=== PATIENT | male | born 1995 | race Caucasian/White ===

== ENCOUNTER 2019-04-16 20:18 | Inpatient (IN) | payer MEDICAID, OTHER ==
[~2019-04-16] VITALS: Ht 175.3 cm; Wt 77.8 kg
[2019-04-16] MEDS ORDERED: DIPHENHYDRAMINE 50 MG INJ IV STA (22:05)
[2019-04-16] MEDS ORDERED: SOD CHLORIDE 0.9% 1,000 ML IV STA (22:05)
[2019-04-16] MEDS ORDERED: ONDANSETRON 4 MG INJ IV STA (22:05)
--- NOTE | 2019-04-16 22:20 | ERD ---
ER Documentation Chief Complaint Chief Complaint L sided ARNOLD, vomiting x3d. vomiting w water. HPI 24-year-old male with no significant past medical history presenting to the emergency department complaining of headache which onset suddenly 3 days ago. The patient states he was at work when he noticed a severe, constant left occipital region headache. He reports 7/10 pain. Associated symptoms include vomiting. He reports 3 episodes of nonbilious and nonbloody vomiting today. He does endorse some neck pain and photophobia. He denies phonophobia. He took ibuprofen and Tylenol at home with no significant relief. He denies any fevers, chills, abdominal pain, or other symptoms at this time. ROS All systems reviewed and are negative except as per history of present illness. Medications Home Meds No Active Prescriptions or Reported Meds Allergies Allergies: Coded Allergies: No Known Allergy (Verified , 03/10/15) PMhx/Soc Medical and Surgical Hx: pt denies Medical Hx, pt denies Surgical Hx History of Surgery: No Anesthesia Reaction: No Hx Neurological Disorder: No Hx Respiratory Disorders: No Hx Cardiac Disorders: No Hx Psychiatric Problems: No Hx Miscellaneous Medical Probl: No Hx Alcohol Use: No Hx Substance Use: No Hx Tobacco Use: No Smoking Status: Never smoker FmHx Family History: No diabetes Physical Exam Vitals Vital Signs Date Temp Pulse Resp B/P (MAP) Pulse Ox O2 O2 Flow FiO2 Time Delivery Rate 04/16/19 99.7 106 22 142/84 99 20:28 (103) Physical Exam Const: No acute distress Head: Atraumatic Eyes: Normal Conjunctiva ENT: Normal External Ears, Nose and Mouth. Neck: Full range of motion. No meningismus. Resp: Clear to auscultation bilaterally Cardio: Regular rate and rhythm, no murmurs Abd: Soft, non tender, non distended. Normal bowel sounds. No rebound tenderness or guarding. No McBurney's point tenderness. Skin: No petechiae or rashes Back: No midline or flank tenderness Ext: No cyanosis, or edema Neur: Awake and alert M/S: Alert and oriented Face: EOMI, face and pharynx with normal sensation and function Motor: Normal strength throughout Sensation: Normal sensation throughout Speech: Normal Cerebel: Normal coordination Normal gait Normal finger to nose Psych: Normal Mood and Affect Result Diagram: 5/223904/16/192239 Results 24 hrs Laboratory Tests Test 04/16/19 22:40 04/17/19 00:05 White Blood Count 21.4 10^3/ul Red Blood Count 5.52 10^6/ul Hemoglobin 16.3 g/dl Hematocrit 47.8 % Mean Corpuscular Volume 86.6 fl Mean Corpuscular Hemoglobin 29.5 pg Mean Corpuscular Hemoglobin Concent 34.1 g/dl Red Cell Distribution Width 12.4 % Platelet Count 366 10^3/UL Mean Platelet Volume 10.4 fl Immature Granulocytes % 0.500 % Neutrophils % 88.6 % Lymphocytes % 4.9 % Monocytes % 5.8 % Eosinophils % 0.0 % Basophils % 0.2 % Nucleated Red Blood Cells % 0.0 /100WBC Immature Granulocytes # 0.100 10^3/ul Neutrophils # 19.0 10^3/ul Lymphocytes # 1.1 10^3/ul Monocytes # 1.3 10^3/ul Eosinophils # 0.0 10^3/ul Basophils # 0.0 10^3/ul Nucleated Red Blood Cells # 0.0 10^3/ul Prothrombin Time 13.1 Sec Prothrombin Time Ratio 1.0 INR International Normalized Ratio 0.98 Activated Partial Thromboplast Time 27.0 Sec Sodium Level 141 mmol/L Potassium Level 3.5 mmol/L Chloride Level 102 mmol/L Carbon Dioxide Level 22 mmol/L Anion Gap 17 Blood Urea Nitrogen 15 mg/dl Creatinine 0.84 mg/dl Est Glomerular Filtrat Rate mL/min > 60 mL/min Glucose Level 102 mg/dl Calcium Level 9.9 mg/dl Total Bilirubin 0.8 mg/dl Direct Bilirubin 0.00 mg/dl Indirect Bilirubin 0.8 mg/dl Aspartate Amino Transf (AST/SGOT) 22 IU/L Alanine Aminotransferase (ALT/SGPT) 28 IU/L Alkaline Phosphatase 97 IU/L Total Protein 7.8 g/dl Albumin 5.0 g/dl Globulin 2.80 g/dl Albumin/Globulin Ratio 1.78 Lipase 40 U/L POC Venous Lactate 0.9 mmol/L Current Medications Medications Dose Sig/Bacilio Start Time Status Last (Trade) Ordered Route PRN Stop Time Admin Dose Reason Admin Sodium 1,000 ml @ Q1H STAT 04/16/19 DC 04/16/19 Chloride 1,000 mls/hr IV 22:05 22:18 04/16/19 23:32 Ondansetron 4 mg ONCE STAT 04/16/19 DC 04/16/19 HCl (Zofran IV 22:05 22:17 Inj) 04/16/19 22:07 25 mg ONCE STAT 04/16/19 DC 04/16/19 Diphenhydrami IV 22:05 22:18 ne HCl 04/16/19 22:07 (Benadryl) Ketorolac 30 mg ONCE STAT 04/16/19 DC Tromethamine IM 23:05 (Toradol) 04/16/19 23:06 Ketorolac 30 mg ONCE STAT 04/16/19 DC 04/16/19 Tromethamine IV 23:14 23:18 (Toradol) 04/16/19 23:15 Sodium 2,180 ml BOLUS OVER 2 04/16/19 DC 04/17/19 Chloride HOURS STAT 23:29 00:06 (NS) IV* 04/16/19 23:33 Ceftriaxone 50 ml @ ONCE ONCE 04/16/19 DC 04/17/19 Sodium 100 mls/hr IVPB 23:30 00:06 04/16/19 23:59 10 mg ONCE ONCE 04/17/19 Dexamethasone IV 00:30 (Decadron) 04/17/19 00:31 Vancomycin 250 ml @ ONCE ONCE 04/17/19 HCl 125 mls/hr IVPB 00:30 04/17/19 02:29 Procedures/MDM Patient is a 24-year-old male presenting to the emergency department with complaints of headache. Differential diagnoses include meningitis, intracranial hemorrhage, subarachnoid hemorrhage, CVA, TIA, tension headache, migraine, cluster headache, and others. I doubt any life threatening etiology at this time. Abdominal examination is completely benign. No rebound tenderness or guarding. No McBurney's point tenderness. I doubt acute surgical abdomen. CT scan of the head was unremarkable. Patient improved in the department after treatment with IV Toradol, Benadryl, fluids, and Zofran. Pt is to follow-up with primary care physician and return here immediately for any new or worsening symptoms. Patient's blood pressure was elevated (>120/80) but appears stable without evidence of hypertension emergency or urgency. The patient is to follow-up and pursue outpatient monitoring and therapy with their primary care physician within 1 week and return immediately if they have any new, worsening, or concerning symptoms. Disclaimer: Inadvertent spelling and grammatical errors are likely due to EHR/dictation software use and do not reflect on the overall quality of patient care. Also, please note that the electronic time recorded on this note does not necessarily reflect the actual time of the patient encounter. Departure Diagnosis: Primary Impression: Headache Condition: Fair Patient Instructions: Self-Care for Headaches Additional Instructions: Follow up with your PCP within the next 1-3 days for a repeat evaluation. If you require a referral to a specialist, your Primary Care Provider may be able to provide this for you. In most patient cases, a referral is not required. If you have further questions regarding this matter, please ask your Primary Care Provider. Return the the emergency department immediately if symptoms worsen or change. If you have any questions regarding medications, ask your pharmacist or us before you leave. If any adverse reactions, occur while taking your medications, discontinue the treatment and return to the emergency department immediately. If any new or worsening symptoms, uncontrolled fevers, or other unexplained symptoms occur, return to the emergency department immediately. Take your medications as directed, and complete the entire course of treatment. ANTHONY MELO PA-C April 16, 2019 22:20
[2019-04-16] MEDS ORDERED: KETOROLAC 30 MG INJ IM STA (23:05)
[2019-04-16] MEDS ORDERED: KETOROLAC 30 MG INJ IV STA (23:14)
[2019-04-16] MEDS ORDERED: SODIUM CHLORIDE 0.9% 1L BAG IV* STA (23:29)
[2019-04-16] MEDS ORDERED: CEFTRIAXONE 2 GM/50 ML (PMX) 50 ML IVPB ONE (23:30)
[2019-04-17] VITALS (10 sets, daily range): BP systolic 116–133; BP diastolic 56–80; PULSE 58–118; RESP 17–20; Ht 175.3 cm; Wt 77.8 kg
[2019-04-17] MEDS ORDERED: DEXAMETHASONE 10 MG/ML 1 ML INJ IV ONE (00:30)
[2019-04-17] MEDS ORDERED: VANCOMYCIN 1 GM (PMX) 250 ML IVPB ONE (00:30)
[2019-04-17] MEDS ORDERED: DOCUSATE SODIUM 100 MG CAP PO PRN (01:30)
[2019-04-17] MEDS ORDERED: ACETAMINOPHEN 325 MG TAB PO PRN (01:30)
[2019-04-17] MEDS ORDERED: VANCOMYCIN IV PER PHARMACY XX SCH (01:30)
[2019-04-17] MEDS ORDERED: NACL 0.9% 3 ML SYG IV SCH (01:30)
[2019-04-17] MEDS ORDERED: BISACODYL (EC) 5 MG TAB PO PRN (01:30)
[2019-04-17] MEDS ORDERED: LORAZEPAM 2 MG INJ IV PRN (01:30)
[2019-04-17] MEDS ORDERED: ACET-141 PO (02:58)
[2019-04-17] MEDS ORDERED: IBUP200C11 PO (02:58)
--- NOTE | 2019-04-17 05:14 | ERD ---
ER Documentation Chief Complaint Chief Complaint L sided ARNOLD, vomiting x3d HPI The patient is a 24-year-old male, presenting to the ER because of acute left- sided headache, acute vomiting, acute fever for the last 3 days. He denies p hotophobia/phonophobia, cough, complains of neck discomfort, denies chest pain, dyspnea, abdominal pain, vomiting, dizzy, diarrhea, skin rash. He smokes, denies drinking, smoke marijuana, denies any history of IV drug abuse, denies traveling Medical history/surgical history: None ROS All systems reviewed and are negative except as per history of present illness. Medications Home Meds Reported Medications Ibuprofen* (Advil*) 200 Mg Capsule, 200 MG PO Q6H PRN for PAIN, CAP 04/17/19 Acetaminophen* (Acetaminophen*) 500 MG Extra Strength Tablet, 500 MG PO Q4H PRN for PAIN AND OR ELEVATED TEMP, TAB 04/17/19 Allergies Allergies: Coded Allergies: No Known Allergy (Verified , 04/17/19) PMhx/Soc Medical and Surgical Hx: pt denies Medical Hx, pt denies Surgical Hx History of Surgery: No Anesthesia Reaction: No Hx Neurological Disorder: No Hx Respiratory Disorders: No Hx Cardiac Disorders: No Hx Psychiatric Problems: No Hx Miscellaneous Medical Probl: No Hx Alcohol Use: Yes Hx Substance Use: Yes (MARIJUANA) Hx Tobacco Use: No Smoking Status: Never smoker Physical Exam Vitals Vital Signs Date Temp Pulse Resp B/P (MAP) Pulse Ox O2 O2 Flow FiO2 Time Delivery Rate 04/16/19 99.7 106 22 142/84 99 20:28 (103) Physical Exam Const: No acute distress. Head: Atraumatic. Eyes: Normal Conjunctiva. ENT: Normal External Ears, Nose and Mouth. Neck: Full range of motion. Mild neck stiffness Resp: Clear to auscultation bilaterally. Cardio: Regular tachycardic. Abd: Soft, non distended, normal bowel sounds, non tender. Skin: No petechiae or rashes. Back: No midline or flank tenderness. Ext: No cyanosis, or edema. Neur: Awake and alert. No focal deficit Psych: Normal Mood and Affect. Result Diagram: 04/16/19223904/16/192239 Results 24 hrs Laboratory Tests Test 04/16/19 22:40 04/16/19 23:59 04/17/19 00:05 04/17/19 00:49 White Blood Count 21.4 10^3/ul Red Blood Count 5.52 10^6/ul Hemoglobin 16.3 g/dl Hematocrit 47.8 % Mean Corpuscular 86.6 fl Volume Mean Corpuscular 29.5 pg Hemoglobin Mean Corpuscular 34.1 g/dl Hemoglobin Concent Red Cell 12.4 % Distribution Width Platelet Count 366 10^3/UL Mean Platelet 10.4 fl Volume Immature 0.500 % Granulocytes % Neutrophils % 88.6 % Lymphocytes % 4.9 % Monocytes % 5.8 % Eosinophils % 0.0 % Basophils % 0.2 % Nucleated Red 0.0 /100WBC Blood Cells % Immature 0.100 10^3/ul Granulocytes # Neutrophils # 19.0 10^3/ul Lymphocytes # 1.1 10^3/ul Monocytes # 1.3 10^3/ul Eosinophils # 0.0 10^3/ul Basophils # 0.0 10^3/ul Nucleated Red 0.0 10^3/ul Blood Cells # Prothrombin Time 13.1 Sec Prothrombin Time 1.0 Ratio INR International 0.98 Normalized Ratio Activated 27.[address] Time Sodium Level 141 mmol/L Potassium Level 3.5 mmol/L Chloride Level 102 mmol/L Carbon Dioxide 22 mmol/L Level Anion Gap 17 Blood Urea 15 mg/dl Nitrogen Creatinine 0.84 mg/dl Est Glomerular > 60 mL/min Filtrat Rate mL/min Glucose Level 102 mg/dl Calcium Level 9.9 mg/dl Total Bilirubin 0.8 mg/dl Direct Bilirubin 0.00 mg/dl Indirect Bilirubin 0.8 mg/dl Aspartate Amino 22 IU/L Transf (AST/SGOT) Alanine 28 IU/L Aminotransferase ( ALT/SGPT) Alkaline 97 IU/L Phosphatase Total Protein 7.8 g/dl Albumin 5.0 g/dl Globulin 2.80 g/dl Albumin/Globulin 1.78 Ratio Lipase 40 U/L Troponin I < 0.012 ng/ml POC Venous Lactate 0.9 mmol/L CSF Tubes 4 Submitted CSF Volume 6.0 ml CSF Appearance CLEAR CSF Color COLORLESS CSF WBC 100 /cmm CSF RBC 0 /uL CSF Cell Count TUBE#4 Tube # CSF Mononuclear 76.0 % Cells % (Auto) CSF Polynuclear 24.0 % WBCs (%) CSF Glucose 58 mg/dl CSF Total Protein 38 mg/dl Current Medications Medications Dose Sig/Bacilio Start Time Status Last (Trade) Ordered Route PRN Stop Time Admin Dose Reason Admin Sodium 1,000 ml @ Q1H STAT 04/16/19 DC 04/16/19 Chloride 1,000 mls/hr IV 22:05 22:18 04/16/19 23:32 Ondansetron 4 mg ONCE STAT 04/16/19 DC 04/16/19 HCl (Zofran IV 22:05 22:17 Inj) 04/16/19 22:07 25 mg ONCE STAT 04/16/19 DC 04/16/19 Diphenhydrami IV 22:05 22:18 ne HCl 04/16/19 22:07 (Benadryl) Ketorolac 30 mg ONCE STAT 04/16/19 DC Tromethamine IM 23:05 (Toradol) 04/16/19 23:06 Ketorolac 30 mg ONCE STAT 04/16/19 DC 04/16/19 Tromethamine IV 23:14 23:18 (Toradol) 04/16/19 23:15 Sodium 2,180 ml BOLUS OVER 2 04/16/19 DC 04/17/19 Chloride HOURS STAT 23:29 00:06 (NS) IV* 04/16/19 23:33 Ceftriaxone 50 ml @ ONCE ONCE 04/16/19 DC 04/17/19 Sodium 100 mls/hr IVPB 23:30 00:06 04/16/19 23:59 10 mg ONCE ONCE 04/17/19 DC 04/17/19 Dexamethasone IV 00:30 00:21 (Decadron) 04/17/19 00:31 Vancomycin 250 ml @ ONCE ONCE 04/17/19 DC 04/17/19 HCl 125 mls/hr IVPB 00:30 00:21 04/17/19 02:29 Procedures/[place] [address] Radiology Main Line: [phone] DIAGNOSTIC IMAGING REPORT Patient: GIANNI BONILLA : 1995 Age: 24 Sex: M MR #: [id number] DOS: 04/16/19 2329 Ordering MD: RUPERT PATRICK MD Location: E/R Room/Bed: PROCEDURE: XR Chest. CLINICAL INDICATION: Chest pain. Possible sepsis TECHNIQUE: Portable AP view of the chest was obtained. COMPARISON: None. FINDINGS: The cardiomediastinal silhouette is within normal limits. The lungs are clear. There is no evidence for pleural effusion, pneumothorax or pulmonary vascular congestion. The osseous structures are intact with no evidence for acute abnormality. RPTAT:HJJR IMPRESSION: No evidence for acute intrathoracic pathology. Physician [place] Date Time Electronically viewed and signed by Damir Chatman Physician on 04/17/2019 00:22 JR/ CC: RUPERT PATRICK MD [id number] [place] [address] Radiology Main Line: [phone] DIAGNOSTIC IMAGING REPORT Patient: GIANNI BONILLA : 1995 Age: 24 Sex: M MR #: [id number] DOS: 04/16/19 2205 Ordering MD: ANTHONY MELO PA-C Location: [facility]TE Room/Bed: PROCEDURE: CT Brain without contrast. CLINICAL INDICATION: Headache. Vomiting. TECHNIQUE: A CT of the brain was performed on a multidetector CT scanner utilizing axial imaging from the skull base through the vertex without IV contrast. Multiplanar reformatted images were made. Images were reviewed on a PACS workstation. The CTDIvol is 39 mGy and the DLP is 634 mGycm. DICOM images are available. One or more of the following dose reduction techniques were utilized: 1.) Automated exposure control 2.) Adjustment of the mA +/- kV according to patient's size 3.) Use of iterative reconstruction technique. COMPARISON: None FINDINGS: There is no intracranial hemorrhage, mass effect, or midline shift. No extra- axial fluid collection is seen. The ventricles and sulci are normal in size and configuration. The density of the brain is normal, and the ortez white matter differentiation appears well-preserved. The visualized paranasal sinuses and osseous structures are grossly unremarkable. IMPRESSION: 1. No evidence of acute intracranial pathology. 2. The brain is normal in appearance. .Mario Quezada MD, MD Date Time Electronically viewed and signed by .Mario Quezada MD, MD on 04/16/2019 22:53 .A/ CC: ANTHONY MELO PA-C [id number] EKG: Read by emergency physician Rate/Rhythm: Normal Sinus Rhythm 88 beats/min QRS, ST, T-waves: No ST elevation, no T inversion, SA Impression: Abnormal EKG MEDICAL MAKING DECISION: The patient is a 24-year-old male, presenting with acute febrile illness with neck stiffness and acute leukocytosis, concerning for acute meningitis. The spinal tap was done, he was treated with Rocephin IV, vancomycin IV, Decadron IV for possible bacterial meningitis. He was treated with Toradol 30 mg IV for pain, Zofran formula for for nausea, normosaline 30 mm/kg IV for clinical dehydration with good response. The differential diagnoses considered include but are not limited to viral meningitis, acute meningitis, hepatic encephalitis, viral syndrome, influenza Lumbar Puncture by me: Patient consented, time out performed, sterilely prepped/draped, anesthetized locally. Anesthesia: 1% lidocaine locally Location: One interspace below the iliac crest Technique: gauge needle with stylet for entry and removal of needle Results: Clear CSF fluid No post procedure complications, bleeding, numbness or weakness. Critical Care: Time: 35 minutes excluding all billable procedures. Treatments/Evaluations: Close monitoring and treatment of unstable vital signs, cardiorespiratory, and neurologic status, while maintaining tight balance of fluid, respiratory, and cardiac interventions. Departure Diagnosis: Primary Impression: Febrile illness, acute Condition: Fair Patient Instructions: Self-Care for Headaches Additional Instructions: The patient's blood pressure was elevated (>120/80) but appears stable without evidence of hypertension emergency or urgency. The patient was counseled about the risks of hypertension and urged to pursue outpatient monitoring and therapy within a week with their primary care physician. I discussed the findings with the patient. I discussed the patient with Dr Gage 1:05 am , who was made aware of the lab, the treatment, the patient condition, pending CSF analysis. The patient is admitted to [facility] with isolation Disclaimer: Inadvertent spelling and grammatical errors are likely due to EHR/dictation software use and do not reflect on the overall quality of patient care. Also, please note that the electronic time recorded on this note does not necessarily reflect the actual time of the patient encounter. RUPERT PATRICK MD April 17, 2019 05:14
[2019-04-17] MEDS: VANCOMYCIN 1 GM 250 ML IVPB SCH ×3 (05:45→21:32)
[2019-04-17] MEDS: DEXAMETHASONE 10 MG/ML 1 ML INJ IV SCH ×3 (05:46→17:44)
[2019-04-17] MEDS: HYDROCODONE/APAP (5/325) TAB PO PRN ×3 (06:10→21:37)
--- NOTE | 2019-04-17 08:40 | CONS ---
Assessment/Plan Assessment/Plan Hospital Course (Demo Recall) 1) meningitis, likely viral continue with vanco/ceftriaxone add acyclovir CSF in lab and will add HSV PCR, viral cx and VDRL will order RPR, and HSV serology in a.m. if cx remain neg after 72 hours can d/c antibacterials and change acyclovir to po until HSV PCR of CSF is reported back Consultation Date/Type/Reason Admit Date/Time April 17, 2019 at 01:08 Date of Consultation: April 17, 2019 Type of Consult ID Date/Time of Note DATE: 04/17/19 TIME: 08:36 Hx of Present Illness pt states he has had a L sided ARNOLD with feeling warm and V for 3 days no sick contacts no rash, joint pains, muscle aches, URI symptoms no cough, sore throat, SOB, D, dysuria no hx of STD's but does get cold sores, last one was a few months ago no sick contacts Past Medical History Medical History: no pertinent history Home Meds Reported Medications Ibuprofen* (Advil*) 200 Mg Capsule, 200 MG PO Q6H PRN for PAIN, CAP 04/17/19 Acetaminophen* (Acetaminophen*) 500 MG Extra Strength Tablet, 500 MG PO Q4H PRN for PAIN AND OR ELEVATED TEMP, TAB 04/17/19 Medications Current Medications IV Flush (NS 3 ml) 3 ml PER PROTOCOL IV ; Start 04/17/19 at 01:30 Ondansetron HCl (Zofran Inj) 4 mg Q6H PRN IV NAUSEA/VOMITING; Start 04/17/19 at 01:30 Acetaminophen (Tylenol Tab) 650 mg Q6H PRN PO .PAIN 1-3 OR TEMP; Start 04/17/19 at 01:30 Acetaminophen/ Hydrocodone Bitart ([place] (5/325)) 1 tab Q6H PRN PO .PAIN 4-6 Last administered on 04/17/19at 06:10; Admin Dose 1 TAB; Start 04/17/19 at 01:30 Docusate Sodium (Colace) 100 mg Q12H PRN PO .CONSTIPATION; Start 04/17/19 at 01:30 Bisacodyl (Dulcolax) 5 mg DAILY PRN PO .CONSTIPATION; Start 04/17/19 at 01:30 Vancomycin HCl (Vanco Iv Per Pharmacy) VANCOMYCIN PER PHARMACY PER PROTOCOL XX ; Start 04/17/19 at 01:30 Ceftriaxone Sodium 50 ml @ 100 mls/hr Q12H IVPB ; Start 04/17/19 at 12:00 Vancomycin HCl 250 ml @ 125 mls/hr Q8H IVPB Last administered on 04/17/19at 05:45; Admin Dose 125 MLS/HR; Start 04/17/19 at 06:00 Dexamethasone (Decadron) 10 mg Q6H IV Last administered on 04/17/19at 05:46; Admin Dose 10 MG; Start 04/17/19 at 06:00; Stop 04/21/19 at 05:59 Lorazepam (Ativan) 0.5 mg Q8H PRN IV AGITATION; Start 04/17/19 at 01:30 Allergies: Coded Allergies: No Known Allergy (Verified , 04/17/19) Social History Smoking Status: Never smoker Exam/Review of Systems Exam Vitals Vital Signs Date Temp Pulse Resp B/P (MAP) Pulse Ox O2 O2 Flow FiO2 Time Delivery Rate 04/17/19 118 08:14 04/17/19 98.3 20 123/63 95 08:05 (83) 04/17/19 Room Air 04:20 Intake and Output 04/16/19 04/16/19 04/17/19 1515:00 23:00 07:00 IntakeIntake Total 1000 ml BalanceBalance 1000 ml Constitutional: alert, oriented Eyes: nl sclera ENMT: mucosa pink and moist Respiratory: clear to auscultation Cardiovascular: regular rate and rhythm Gastrointestinal: soft, non-tender Extremities: other (no rashes noted) Results Result Diagram: 04/16/19223904/16/192239 Results 24hrs Laboratory Tests Test 04/16/19 22:40 04/16/19 23:59 04/17/19 00:05 04/17/19 00:49 White Blood Count 21.4 H Red Blood Count 5.52 Hemoglobin 16.3 Hematocrit 47.8 Mean Corpuscular 86.6 Volume Mean Corpuscular 29.5 Hemoglobin Mean Corpuscular 34.1 Hemoglobin Concen t Red Cell 12.4 Distribution Width Platelet Count 366 Mean Platelet 10.4 Volume Immature 0.500 H Granulocytes % Neutrophils % 88.6 H Lymphocytes % 4.9 L Monocytes % 5.8 Eosinophils % 0.0 Basophils % 0.2 Nucleated Red 0.0 Blood Cells % Immature 0.100 H Granulocytes # Neutrophils # 19.0 H Lymphocytes # 1.1 Monocytes # 1.3 H Eosinophils # 0.0 Basophils # 0.0 Nucleated Red 0.0 Blood Cells # Prothrombin Time 13.1 Prothrombin Time 1.0 Ratio INR International 0.98 Normalized Ratio Activated 27.0 Partial Thrombopl ast Time Sodium Level 141 Potassium Level 3.5 Chloride Level 102 Carbon Dioxide 22 Level Anion Gap 17 H Blood Urea 15 Nitrogen Creatinine 0.84 Est Glomerular > 60 Filtrat Rate mL/min Glucose Level 102 Calcium Level 9.9 Total Bilirubin 0.8 Direct Bilirubin 0.00 Indirect 0.8 Bilirubin Aspartate Amino 22 Transf (AST/SGOT) Alanine 28 Aminotransferase (ALT/SGPT) Alkaline 97 Phosphatase Total Protein 7.8 Albumin 5.0 H Globulin 2.80 Albumin/Globulin 1.78 Ratio Lipase 40 Troponin I < 0.012 POC Venous 0.9 Lactate CSF Tubes 4 Submitted CSF Volume 6.0 CSF Appearance CLEAR CSF Color COLORLESS CSF WBC 100 *H CSF RBC 0 CSF Cell Count TUBE#4 Tube # CSF Mononuclear 76.0 Cells % (Auto) CSF Polynuclear 24.0 WBCs (%) CSF Glucose 58 CSF Total Protein 38 Test 04/17/19 01:21 04/17/19 01:25 04/17/19 01:33 04/17/19 03:50 Lactic Acid Level 1.0 1.1 Urine Color YELLOW Urine Clarity SLIGHTLY CLOUDY A Urine pH 5.0 Urine Specific 1.033 H [place] Urine Ketones 2+ H Urine Nitrite NEGATIVE Urine Bilirubin NEGATIVE Urine 1+ H Urobilinogen Urine Leukocyte NEGATIVE Esterase Urine Microscopic 16 H RBC Urine Microscopic 2 WBC Urine Bacteria FEW A Urine Mucus MANY A Urine Hemoglobin 2+ H Urine Glucose NEGATIVE Urine Total 1+ H Protein Bedside Urine pH 6.0 (LAB) Bedside Urine 2+ H Protein (LAB) Bedside Urine Negative Glucose (UA) Bedside Urine 3+ H Ketones (LAB) Bedside Urine 1+ H Blood Bedside Urine Negative Nitrite (LAB) Bedside Urine Negative Leukocyte Esteras e (L Medications Medication Current Medications IV Flush (NS 3 ml) 3 ml PER PROTOCOL IV ; Start 04/17/19 at 01:30 Ondansetron HCl (Zofran Inj) 4 mg Q6H PRN IV NAUSEA/VOMITING; Start 04/17/19 at 01:30 Acetaminophen (Tylenol Tab) 650 mg Q6H PRN PO .PAIN 1-3 OR TEMP; Start 04/17/19 at 01:30 Acetaminophen/ Hydrocodone Bitart ([place] (5/325)) 1 tab Q6H PRN PO .PAIN 4-6 Last administered on 04/17/19at 06:10; Admin Dose 1 TAB; Start 04/17/19 at 01:30 Docusate Sodium (Colace) 100 mg Q12H PRN PO .CONSTIPATION; Start 04/17/19 at 01:30 Bisacodyl (Dulcolax) 5 mg DAILY PRN PO .CONSTIPATION; Start 04/17/19 at 01:30 Vancomycin HCl (Vanco Iv Per Pharmacy) VANCOMYCIN PER PHARMACY PER PROTOCOL XX ; Start 04/17/19 at 01:30 Ceftriaxone Sodium 50 ml @ 100 mls/hr Q12H IVPB ; Start 04/17/19 at 12:00 Vancomycin HCl 250 ml @ 125 mls/hr Q8H IVPB Last administered on 04/17/19at 05:45; Admin Dose 125 MLS/HR; Start 04/17/19 at 06:00 Dexamethasone (Decadron) 10 mg Q6H IV Last administered on 04/17/19at 05:46; Admin Dose 10 MG; Start 04/17/19 at 06:00; Stop 04/21/19 at 05:59 Lorazepam (Ativan) 0.5 mg Q8H PRN IV AGITATION; Start 04/17/19 at 01:30 CORA AMBROCIO MD April 17, 2019 08:40
[2019-04-17] MEDS: ONDANSETRON 4 MG INJ IV PRN (08:54)
--- NOTE | 2019-04-17 09:48 | HP ---
Date/Time of Note Date/Time of Note DATE: 04/17/19 TIME: 09:41 Assessment/Plan VTE Prophylaxis Risk score (from [facility] [place]0 risk: 1 SCD applied (from [facility] [place]): Yes Pharmacological prophylaxis: NA/contraindicated Pharm contraindication: low risk/ambulating Lines/Catheters IV Catheter Type (from [facility] [place] Assessment/Plan Hospital Course This is a 24-year-old male being admitted to the telemetry floor for: #1 sepsis: Secondary likely to underlying viral versus bacterial meningitis. Patient CSF shows 100 white blood cells. His tap was apparently clear. This likely reflects a viral meningitis in nature. Nonetheless at the current time we will continue vancomycin and ceftriaxone. Will consult ID for further antibiotic and test recommendations. Continue to patient in isolation and droplet precaution. Decadron 0.15 mg/kg every 6 hours x4 days and Ativan for a gitation #2 acute meningitis: Viral versus bacterial, likely viral. Continue supportive care. Antibiotics of vancomycin and ceftriaxone. Will discuss with infectious disease regarding additional antibiotics/antivirals. Decadron 0.15 mg/kg every 6 hours x4 days and Ativan for agitation #3 DVT GI prophylaxis: SCDs, Protonix Further treatment strategy will be implemented as per clinical course Result Diagram: 04/16/190 04/16/190 Results 24hrs Laboratory Tests Test 04/16/19 22:40 04/16/19 23:59 04/17/19 00:05 04/17/19 00:49 White Blood Count 21.4 H Red Blood Count 5.52 Hemoglobin 16.3 Hematocrit 47.8 Mean Corpuscular 86.6 Volume Mean Corpuscular 29.5 Hemoglobin Mean Corpuscular 34.1 Hemoglobin Concen t Red Cell 12.4 Distribution Width Platelet Count 366 Mean Platelet 10.4 Volume Immature 0.500 H Granulocytes % Neutrophils % 88.6 H Lymphocytes % 4.9 L Monocytes % 5.8 Eosinophils % 0.0 Basophils % 0.2 Nucleated Red 0.0 Blood Cells % Immature 0.100 H Granulocytes # Neutrophils # 19.0 H Lymphocytes # 1.1 Monocytes # 1.3 H Eosinophils # 0.0 Basophils # 0.0 Nucleated Red 0.0 Blood Cells # Prothrombin Time 13.1 Prothrombin Time 1.0 Ratio INR International 0.98 Normalized Ratio Activated 27.0 Partial Thrombopl ast Time Sodium Level 141 Potassium Level 3.5 Chloride Level 102 Carbon Dioxide 22 Level Anion Gap 17 H Blood Urea 15 Nitrogen Creatinine 0.84 Est Glomerular > 60 Filtrat Rate mL/min Glucose Level 102 Calcium Level 9.9 Total Bilirubin 0.8 Direct Bilirubin 0.00 Indirect 0.8 Bilirubin Aspartate Amino 22 Transf (AST/SGOT) Alanine 28 Aminotransferase (ALT/SGPT) Alkaline 97 Phosphatase Total Protein 7.8 Albumin 5.0 H Globulin 2.80 Albumin/Globulin 1.78 Ratio Lipase 40 Troponin I < 0.012 POC Venous 0.9 Lactate CSF Tubes 4 Submitted CSF Volume 6.0 CSF Appearance CLEAR CSF Color COLORLESS CSF WBC 100 *H CSF RBC 0 CSF Cell Count TUBE#4 Tube # CSF Mononuclear 76.0 Cells % (Auto) CSF Polynuclear 24.0 WBCs (%) CSF Glucose 58 CSF Total Protein 38 Test 04/17/19 01:21 04/17/19 01:25 04/17/19 01:33 04/17/19 03:50 Lactic Acid Level 1.0 1.1 Urine Color YELLOW Urine Clarity SLIGHTLY CLOUDY A Urine pH 5.0 Urine Specific 1.033 H [place] Urine Ketones 2+ H Urine Nitrite NEGATIVE Urine Bilirubin NEGATIVE Urine 1+ H Urobilinogen Urine Leukocyte NEGATIVE Esterase Urine Microscopic 16 H RBC Urine Microscopic 2 WBC Urine Bacteria FEW A Urine Mucus MANY A Urine Hemoglobin 2+ H Urine Glucose NEGATIVE Urine Total 1+ H Protein Bedside Urine pH 6.0 (LAB) Bedside Urine 2+ H Protein (LAB) Bedside Urine Negative Glucose (UA) Bedside Urine 3+ H Ketones (LAB) Bedside Urine 1+ H Blood Bedside Urine Negative Nitrite (LAB) Bedside Urine Negative Leukocyte Esteras e (L HPI/ROS Admit Date/Time Admit Date/Time April 17, 2019 at 01:08 Hx of Present Illness Chief complaint: Headaches, fever x3 days This is a 24-year-old male with a past medical history who presented to the emergency department complaining of acute left-sided headaches and neck stif fness and fevers for the last 3 days. Patient denies any sick contacts. Patient did report nausea. He denies any photophobia or phonophobia. He denies any drug use or recent travel. Denies any sick contacts. No high risk sexual behavior Allergies: NKDA Medications: None ROS Const: As per HPI Eyes : No pain discharge or redness or change in visual acuity ENT: No pain, sore throat, congestion, congestion, dysphagia or discharge Respiratory: No shortness of breath, cough, sputum, wheezing, or pleuritic pain Cardiovascular: No chest pain, palpitation, PND, or edema GI : no change in appetite, abdominal pain, nausea, vomiting, diarrhea, constipation, or change in the color his stool Genitourinary: No dysuria, hematuria, flank pain , discharge or CVA tenderness Musculoskeletal: As per HPI Skin: No rash, bruising or hives Neuro: As per HPI Endocrine: No polyuria, polydipsia, temperature intolerance Psych: No hallucination, depression, anxiety or suicidal ideation PMH/Family/Social Past Medical History Medical History: no pertinent history Medications Current Medications IV Flush (NS 3 ml) 3 ml PER PROTOCOL IV ; Start 04/17/19 at 01:30 Ondansetron HCl (Zofran Inj) 4 mg Q6H PRN IV NAUSEA/VOMITING Last administered on 04/17/19at 08:54; Admin Dose 4 MG; Start 04/17/19 at 01:30 Acetaminophen (Tylenol Tab) 650 mg Q6H PRN PO .PAIN 1-3 OR TEMP; Start 04/17/19 at 01:30 Acetaminophen/ Hydrocodone Bitart ([place] (5/325)) 1 tab Q6H PRN PO .PAIN 4-6 Last administered on 04/17/19at 06:10; Admin Dose 1 TAB; Start 04/17/19 at 01:30 Docusate Sodium (Colace) 100 mg Q12H PRN PO .CONSTIPATION; Start 04/17/19 at 01:30 Bisacodyl (Dulcolax) 5 mg DAILY PRN PO .CONSTIPATION; Start 04/17/19 at 01:30 Vancomycin HCl (Vanco Iv Per Pharmacy) VANCOMYCIN PER PHARMACY PER PROTOCOL XX ; Start 04/17/19 at 01:30 Ceftriaxone Sodium 50 ml @ 100 mls/hr Q12H IVPB ; Start 04/17/19 at 12:00 Vancomycin HCl 250 ml @ 125 mls/hr Q8H IVPB Last administered on 04/17/19at 05:45; Admin Dose 125 MLS/HR; Start 04/17/19 at 06:00 Dexamethasone (Decadron) 10 mg Q6H IV Last administered on 04/17/19at 05:46; Admin Dose 10 MG; Start 04/17/19 at 06:00; Stop 04/21/19 at 05:59 Lorazepam (Ativan) 0.5 mg Q8H PRN IV AGITATION; Start 04/17/19 at 01:30 Acyclovir 750 mg/ Sodium Chloride 100 ml @ 100 mls/hr Q8 IVPB ; Start 04/17/19 at 14:00 Coded Allergies: No Known Allergy (Verified , 04/17/19) Past Surgical History Past Surgical Hx: no surgical history Family History Significant Family History: no pertinent family hx Social History Alcohol Use: none Smoking Status: Never smoker Drug Use: none Exam/Review of Systems Vital Signs Vitals Vital Signs Date Temp Pulse Resp B/P (MAP) Pulse Ox O2 O2 Flow FiO2 Time Delivery Rate 04/17/19 118 08:14 04/17/19 98.3 20 123/63 95 08:05 (83) 04/17/19 Room Air 04:20 Intake and Output 04/16/19 04/16/19 04/17/19 1515:00 23:00 07:00 IntakeIntake Total 1000 ml BalanceBalance 1000 ml Exam Exam General: Patient is a pleasant male currently lying in bed in no acute distress, he is warm to touch HEENT: Atraumatic, normocephalic. The pupils are equal, round and reactive. Extraocular motor are intact Neck: Supple with full range of motion. No rigidity or meningismus Chest: Nontender Lungs: Clear to auscultation bilaterally no crackles rales or wheezing Heart: Normal S1-S2, Regular rhythm and rate. No murmur, S3, or S4 Abdomen: Soft , nontender, nondistended , bowel sounds are present. No guarding no rebound tenderness , No masses or organomegaly. No costovertebral temporal angle mass Extremities: Normal to inspection, no edema no cyanosis Neurologic: Normal mental status, speech normal, cranial nerves II through XII are intact, motor and sensory are intact, negative Kernig's, negative Brudzinski Additional Comments PROCEDURE: CT Brain without contrast. CLINICAL INDICATION: Headache. Vomiting. TECHNIQUE: A CT of the brain was performed on a multidetector CT scanner utilizing axial imaging from the skull base through the vertex without IV contrast. Multiplanar reformatted images were made. Images were reviewed on a PACS workstation. The CTDIvol is 39 mGy and the DLP is 634 mGycm. DICOM images are available. One or more of the following dose reduction techniques were utilized: 1.) Automated exposure control 2.) Adjustment of the mA +/- kV according to patient's size 3.) Use of iterative reconstruction technique. COMPARISON: None FINDINGS: There is no intracranial hemorrhage, mass effect, or midline shift. No extra- axial fluid collection is seen. The ventricles and sulci are normal in size and configuration. The density of the brain is normal, and the ortez white matter differentiation appears well-preserved. The visualized paranasal sinuses and osseous structures are grossly unremarkable. IMPRESSION: 1. No evidence of acute intracranial pathology. 2. The brain is normal in appearance. .Mario Quezada MD, MD Date Time Electronically viewed and signed by .Mario Quezada MD, MD on 04/16/2019 22:53 .A/ CC: ANTHONY MELO PA-C [id number] PROCEDURE: XR Chest. CLINICAL INDICATION: Chest pain. Possible sepsis TECHNIQUE: Portable AP view of the chest was obtained. COMPARISON: None. FINDINGS: The cardiomediastinal silhouette is within normal limits. The lungs are clear. There is no evidence for pleural effusion, pneumothorax or pulmonary vascular congestion. The osseous structures are intact with no evidence for acute abnormality. RPTAT:HJJR IMPRESSION: No evidence for acute intrathoracic pathology. Physician [place] Date Time Electronically viewed and signed by Physician [place] on 04/17/2019 00:22 JR/ CC: RUPERT PATRICK MD [id number] LOUIE CHERRY April 17, 2019 09:48
[2019-04-17] MEDS: CEFTRIAXONE 2 GM/50 ML (PMX) 50 ML IVPB SCH (11:56)
[2019-04-17] MEDS: ACYCLOVIR IVPB SCH ×2 (13:00→21:32)
[2019-04-17] MEDS: SOD CHLORIDE 0.9% IVPB SCH ×2 (13:00→21:32)
--- NOTE | 2019-04-17 15:23 | PN ---
Date/Time of Note Date/Time of Note DATE: 04/17/19 TIME: 15:22 Assessment/Plan VTE Prophylaxis Risk score (from [facility])>0 risk: 1 SCD applied (from [facility]): Yes Pharmacological prophylaxis: NA/contraindicated Pharm contraindication: low risk/ambulating Lines/Catheters IV [facility] Type (from [facility] Peripheral IV Assessment/Plan Hospital Course SUBJECTIVE: Denies any headache or back pain. OBJECTIVE: Physical Exam General: Adequately build 24 year-old male lying in bed in no apparent distress. HEENT: Normocephalic, atraumatic. Eyes: Anicteric sclerae, conjunctivae clear. ENT: Nasal septum midline, oral mucosa moist. Neck supple, no JVD noticed. Respiratory: Bilaterally clear breath sounds. No use of accessory muscles of respiration. No adventitious breath sounds. Cardiovascular: S1, S2 heard. Regular rate and rhythm. Abdomen: Soft, nontender, and nondistended. Bowel sounds positive in all 4 quadrants. Genitourinary: Deferred. Extremities: No cyanosis, no clubbing, no edema. Peripheral pulses palpable. Neurologic: Cranial nerves II through XII grossly intact. The patient is awake, alert, and oriented. Skin: Normal skin turgor. No skin rashes. Labs & Vitals per chart ASSESSMENT & PLAN 24-year-old male with no significant past medical history who came to the emergency room with chief complaint of headache, and fevers with evidence of underlying sepsis with leukocytosis, tachycardia, with spinal tap showing CSF WBC of more than 100, who was admitted to inpatient setting for further treatment and evaluation. 1. Meningitis. -Likely viral in origin. -Continue acyclovir. -Pending CSF culture. -Continue vancomycin plus ceftriaxone until cultures are available. -Continue Decadron. 2. Sepsis with leukocytosis and tachycardia, secondary to underlying meningitis present on admission. -Continue antimicrobials as per ID. 3. Fluids, electrolytes, and nutrition. -Regular diet. 4. DVT prophylaxis. -Bilateral SCDs. 5. Plan. -Continue antimicrobials as per ID. -Await clinical improvement. The patient was seen in collaboration with Dr. Rodriguez. Result Diagram: 04/16/19 2240 04/16/19 2240 Results 24hrs Laboratory Tests Test 04/16/19 22:40 04/16/19 23:59 04/17/19 00:05 04/17/19 00:49 White Blood Count 21.4 H Red Blood Count 5.52 Hemoglobin 16.3 Hematocrit 47.8 Mean Corpuscular 86.6 Volume Mean Corpuscular 29.5 Hemoglobin Mean Corpuscular 34.1 Hemoglobin Concen t Red Cell 12.4 Distribution Width Platelet Count 366 Mean Platelet 10.4 Volume Immature 0.500 H Granulocytes % Neutrophils % 88.6 H Lymphocytes % 4.9 L Monocytes % 5.8 Eosinophils % 0.0 Basophils % 0.2 Nucleated Red 0.0 Blood Cells % Immature 0.100 H Granulocytes # Neutrophils # 19.0 H Lymphocytes # 1.1 Monocytes # 1.3 H Eosinophils # 0.0 Basophils # 0.0 Nucleated Red 0.0 Blood Cells # Prothrombin Time 13.1 Prothrombin Time 1.0 Ratio INR International 0.98 Normalized Ratio Activated 27.0 Partial Thrombopl ast Time Sodium Level 141 Potassium Level 3.5 Chloride Level 102 Carbon Dioxide 22 Level Anion Gap 17 H Blood Urea 15 Nitrogen Creatinine 0.84 Est Glomerular > 60 Filtrat Rate mL/min Glucose Level 102 Calcium Level 9.9 Total Bilirubin 0.8 Direct Bilirubin 0.00 Indirect 0.8 Bilirubin Aspartate Amino 22 Transf (AST/SGOT) Alanine 28 Aminotransferase (ALT/SGPT) Alkaline 97 Phosphatase Total Protein 7.8 Albumin 5.0 H Globulin 2.80 Albumin/Globulin 1.78 Ratio Lipase 40 Troponin I < 0.012 POC Venous 0.9 Lactate CSF Tubes 4 Submitted CSF Volume 6.0 CSF Appearance CLEAR CSF Color COLORLESS CSF WBC 100 *H CSF RBC 0 CSF Cell Count TUBE#4 Tube # CSF Mononuclear 76.0 Cells % (Auto) CSF Polynuclear 24.0 WBCs (%) CSF Glucose 58 CSF Total Protein 38 Test 04/17/19 01:21 04/17/19 01:25 04/17/19 01:33 04/17/19 03:50 Lactic Acid Level 1.0 1.1 Urine Color YELLOW Urine Clarity SLIGHTLY CLOUDY A Urine pH 5.0 Urine Specific 1.033 H [place] Urine Ketones 2+ H Urine Nitrite NEGATIVE Urine Bilirubin NEGATIVE Urine 1+ H Urobilinogen Urine Leukocyte NEGATIVE Esterase Urine Microscopic 16 H RBC Urine Microscopic 2 WBC Urine Bacteria FEW A Urine Mucus MANY A Urine Hemoglobin 2+ H Urine Glucose NEGATIVE Urine Total 1+ H Protein Bedside Urine pH 6.0 (LAB) Bedside Urine 2+ H Protein (LAB) Bedside Urine Negative Glucose (UA) Bedside Urine 3+ H Ketones (LAB) Bedside Urine 1+ H Blood Bedside Urine Negative Nitrite (LAB) Bedside Urine Negative Leukocyte Esteras e (L Exam/Review of Systems Exam Vitals Vital Signs Date Temp Pulse Resp B/P (MAP) Pulse Ox O2 O2 Flow FiO2 Time Delivery Rate 04/17/19 98.6 72 20 116/65 98 15:11 (82) 04/17/19 Room Air 04:20 Intake and Output 04/16/19 04/16/19 04/17/19 1515:00 23:00 07:00 IntakeIntake Total 1000 ml BalanceBalance 1000 ml Results Results 24hrs Laboratory Tests Test 04/16/19 22:40 04/16/19 23:59 04/17/19 00:05 04/17/19 00:49 White Blood Count 21.4 H Red Blood Count 5.52 Hemoglobin 16.3 Hematocrit 47.8 Mean Corpuscular 86.6 Volume Mean Corpuscular 29.5 Hemoglobin Mean Corpuscular 34.1 Hemoglobin Concen t Red Cell 12.4 Distribution Width Platelet Count 366 Mean Platelet 10.4 Volume Immature 0.500 H Granulocytes % Neutrophils % 88.6 H Lymphocytes % 4.9 L Monocytes % 5.8 Eosinophils % 0.0 Basophils % 0.2 Nucleated Red 0.0 Blood Cells % Immature 0.100 H Granulocytes # Neutrophils # 19.0 H Lymphocytes # 1.1 Monocytes # 1.3 H Eosinophils # 0.0 Basophils # 0.0 Nucleated Red 0.0 Blood Cells # Prothrombin Time 13.1 Prothrombin Time 1.0 Ratio INR International 0.98 Normalized Ratio Activated 27.0 Partial Thrombopl ast Time Sodium Level 141 Potassium Level 3.5 Chloride Level 102 Carbon Dioxide 22 Level Anion Gap 17 H Blood Urea 15 Nitrogen Creatinine 0.84 Est Glomerular > 60 Filtrat Rate mL/min Glucose Level 102 Calcium Level 9.9 Total Bilirubin 0.8 Direct Bilirubin 0.00 Indirect 0.8 Bilirubin Aspartate Amino 22 Transf (AST/SGOT) Alanine 28 Aminotransferase (ALT/SGPT) Alkaline 97 Phosphatase Total Protein 7.8 Albumin 5.0 H Globulin 2.80 Albumin/Globulin 1.78 Ratio Lipase 40 Troponin I < 0.012 POC Venous 0.9 Lactate CSF Tubes 4 Submitted CSF Volume 6.0 CSF Appearance CLEAR CSF Color COLORLESS CSF WBC 100 *H CSF RBC 0 CSF Cell Count TUBE#4 Tube # CSF Mononuclear 76.0 Cells % (Auto) CSF Polynuclear 24.0 WBCs (%) CSF Glucose 58 CSF Total Protein 38 Test 04/17/19 01:21 04/17/19 01:25 04/17/19 01:33 04/17/19 03:50 Lactic Acid Level 1.0 1.1 Urine Color YELLOW Urine Clarity SLIGHTLY CLOUDY A Urine pH 5.0 Urine Specific 1.033 H [place] Urine Ketones 2+ H Urine Nitrite NEGATIVE Urine Bilirubin NEGATIVE Urine 1+ H Urobilinogen Urine Leukocyte NEGATIVE Esterase Urine Microscopic 16 H RBC Urine Microscopic 2 WBC Urine Bacteria FEW A Urine Mucus MANY A Urine Hemoglobin 2+ H Urine Glucose NEGATIVE Urine Total 1+ H Protein Bedside Urine pH 6.0 (LAB) Bedside Urine 2+ H Protein (LAB) Bedside Urine Negative Glucose (UA) Bedside Urine 3+ H Ketones (LAB) Bedside Urine 1+ H Blood Bedside Urine Negative Nitrite (LAB) Bedside Urine Negative Leukocyte Esteras e (L Medications Medication Current Medications IV Flush (NS 3 ml) 3 ml PER PROTOCOL IV ; Start 04/17/19 at 01:30 Ondansetron HCl (Zofran Inj) 4 mg Q6H PRN IV NAUSEA/VOMITING Last administered on 04/17/19at 08:54; Admin Dose 4 MG; Start 04/17/19 at 01:30 Acetaminophen (Tylenol Tab) 650 mg Q6H PRN PO .PAIN 1-3 OR TEMP; Start 04/17/19 at 01:30 Acetaminophen/ Hydrocodone Bitart ([place] (5/325)) 1 tab Q6H PRN PO .PAIN 4-6 Last administered on 04/17/19at 14:17; Admin Dose 1 TAB; Start 04/17/19 at 01:30 Docusate Sodium (Colace) 100 mg Q12H PRN PO .CONSTIPATION; Start 04/17/19 at 01:30 Bisacodyl (Dulcolax) 5 mg DAILY PRN PO .CONSTIPATION; Start 04/17/19 at 01:30 Vancomycin HCl (Vanco Iv Per Pharmacy) VANCOMYCIN PER PHARMACY PER PROTOCOL XX ; Start 04/17/19 at 01:30 Ceftriaxone Sodium 50 ml @ 100 mls/hr Q12H IVPB Last administered on 04/17/19at 11:56; Admin Dose 100 MLS/HR; Start 04/17/19 at 12:00 Vancomycin HCl 250 ml @ 125 mls/hr Q8H IVPB Last administered on 04/17/19at 13:01; Admin Dose 125 MLS/HR; Start 04/17/19 at 06:00 Dexamethasone (Decadron) 10 mg Q6H IV Last administered on 04/17/19at 11:55; Admin Dose 10 MG; Start 04/17/19 at 06:00; Stop 04/21/19 at 05:59 Lorazepam (Ativan) 0.5 mg Q8H PRN IV AGITATION; Start 04/17/19 at 01:30 Acyclovir 750 mg/ Sodium Chloride 100 ml @ 100 mls/hr Q8 IVPB Last administered on 04/17/19at 13:00; Admin Dose 100 MLS/HR; Start 04/17/19 at 14:00 Miscellaneous Information (*Rx Drug Level Order Reminder*) VANCOMYCIN TROUGH AT 0500 0500 ONCE XX ; Start 04/18/19 at 05:00; Stop 04/18/19 at 05:01 MAXIMO VILLAREAL NP April 17, 2019 15:23
[2019-04-18] MEDS: CEFTRIAXONE 2 GM/50 ML (PMX) 50 ML IVPB SCH ×3 (00:24→23:49)
[2019-04-18] MEDS: DEXAMETHASONE 10 MG/ML 1 ML INJ IV SCH ×5 (00:58→23:48)
[2019-04-18 02:07] VITALS: BP 127/75; PULSE 73; RESP 18
[2019-04-18] MEDS: ONDANSETRON 4 MG INJ IV PRN (03:22)
[2019-04-18] MEDS: HYDROCODONE/APAP (5/325) TAB PO PRN (03:23)
[2019-04-18] MEDS ORDERED: AL HYDROX/MG HYDROX/SIMETH 30 ML CUP PO PRN (05:00)
[2019-04-18] MEDS ORDERED: morphine 2 MG INJ IV PRN (05:00)
[2019-04-18] MEDS: PANTOPRAZOLE (EC) 40 MG TAB PO SCH (05:27)
[2019-04-18] MEDS: SOD CHLORIDE 0.9% IVPB SCH ×3 (05:41→21:19)
[2019-04-18] MEDS: ACYCLOVIR IVPB SCH ×3 (05:41→21:19)
[2019-04-18] MEDS: HYDROmorphONE 1 MG/ML SYG IV PRN ×2 (06:18→14:10)
[2019-04-18] MEDS: VANCOMYCIN 1 GM 250 ML IVPB SCH (06:48)
[2019-04-18 07:30] VITALS: BP 113/72; PULSE 55; RESP 18
--- NOTE | 2019-04-18 08:10 | CONS ---
Assessment/Plan Assessment/Plan Hospital Course (Demo Recall) 1) meningitis, likely viral continue with vanco/ceftriaxone add acyclovir CSF in lab and will add HSV PCR, viral cx and VDRL will order RPR, and HSV serology in a.m. if cx remain neg after 72 hours can d/c antibacterials and change acyclovir to po until HSV PCR of CSF is reported back 04/18- can d/c steroids as decadron only indicated in bacterial meningitis and only been shown effective in pneumococcal meningitis specifically CSF cx are NGTD and if they remain neg by tomorrow i will d/c vanco/ceftriaxone 2) Abd pain with V and diarrhea this could be side effects from the antibiotics abd x-ray shows increase in gas start probiotics, check stool for c.dif Consultation Date/Type/Reason Admit Date/Time April 17, 2019 at 01:08 Initial Consult Date 04/17/19 Type of Consult ID Date/Time of Note DATE: 04/18/19 TIME: 08:05 24 HR Interval Summary Free Text/Dictation pt's ARNOLD is better occasionally present pt was able to eat hospital food yesterday but potato stew from home after a few sips he vomited pt has had some diarrhea too with LUQ abd pain no SOB Exam/Review of Systems Exam Vitals Vital Signs Date Temp Pulse Resp B/P (MAP) Pulse Ox O2 O2 Flow FiO2 Time Delivery Rate 04/18/19 98.4 73 18 127/75 96 02:07 (92) 04/17/19 Room Air 04:20 Intake and Output 04/17/19 04/17/19 04/18/19 1515:00 23:00 07:00 IntakeIntake Total 150 ml 1950 ml 400 ml BalanceBalance 150 ml 1950 ml 400 ml Constitutional: alert, oriented ENMT: mucosa pink and moist Neck: supple Respiratory: clear to auscultation Cardiovascular: regular rate and rhythm Gastrointestinal: soft, other (slight tenderness to LUQ) Results Result Diagram: 04/18/199 04/18/19448 Results 24hrs Laboratory Tests Test 04/18/19 04:49 White Blood Count 23.7 H Red Blood Count 5.32 Hemoglobin 15.8 Hematocrit 46.4 Mean Corpuscular Volume 87.2 Mean Corpuscular Hemoglobin 29.7 Mean Corpuscular Hemoglobin Concent 34.1 Red Cell Distribution Width 12.6 Platelet Count 334 Mean Platelet Volume 12.0 H Immature Granulocytes % 0.700 H Neutrophils % 91.8 H Lymphocytes % 3.4 L Monocytes % 4.0 Eosinophils % 0.0 Basophils % 0.1 Nucleated Red Blood Cells % 0.0 Immature Granulocytes # 0.160 H Neutrophils # 21.7 H Lymphocytes # 0.8 Monocytes # 1.0 H Eosinophils # 0.0 Basophils # 0.0 Nucleated Red Blood Cells # 0.0 Sodium Level 140 Potassium Level 3.9 Chloride Level 107 Carbon Dioxide Level 25 Anion Gap 8 # Blood Urea Nitrogen 18 Creatinine 0.73 Est Glomerular Filtrat Rate mL/min > 60 Glucose Level 144 # Hemoglobin A1c 5.3 Calcium Level 9.3 Phosphorus Level 2.8 Magnesium Level 2.1 Total Bilirubin 0.4 Direct Bilirubin 0.00 Indirect Bilirubin 0.4 Aspartate Amino Transf (AST/SGOT) 24 Alanine Aminotransferase (ALT/SGPT) 28 Alkaline Phosphatase 73 Troponin I < 0.012 Total Protein 6.8 # Albumin 4.2 Globulin 2.60 Albumin/Globulin Ratio 1.61 Thyroid Stimulating Hormone (TSH) Pending Vancomycin Level Trough 7.5 L Medications Medication Current Medications IV Flush (NS 3 ml) 3 ml PER PROTOCOL IV ; Start 04/17/19 at 01:30 Ondansetron HCl (Zofran Inj) 4 mg Q6H PRN IV NAUSEA/VOMITING Last administered on 04/18/19at 03:22; Admin Dose 4 MG; Start 04/17/19 at 01:30 Acetaminophen (Tylenol Tab) 650 mg Q6H PRN PO .PAIN 1-3 OR TEMP; Start 04/17/19 at 01:30 Acetaminophen/ Hydrocodone Bitart ([place] (5/325)) 1 tab Q6H PRN PO .PAIN 4-6 Last administered on 04/18/19at 03:23; Admin Dose 1 TAB; Start 04/17/19 at 01:30 Docusate Sodium (Colace) 100 mg Q12H PRN PO .CONSTIPATION; Start 04/17/19 at 01:30 Bisacodyl (Dulcolax) 5 mg DAILY PRN PO .CONSTIPATION; Start 04/17/19 at 01:30 Vancomycin HCl (Vanco Iv Per Pharmacy) VANCOMYCIN PER PHARMACY PER PROTOCOL XX ; Start 04/17/19 at 01:30 Ceftriaxone Sodium 50 ml @ 100 mls/hr Q12H IVPB Last administered on 04/18/19 00:24; Admin Dose 100 MLS/HR; Start 04/17/19 at 12:00 Vancomycin HCl 250 ml @ 125 mls/hr Q8H IVPB Last administered on 04/18/19 06:48; Admin Dose 125 MLS/HR; Start 04/17/19 at 06:00; Stop 04/18/19 at 09:00 Dexamethasone (Decadron) 10 mg Q6H IV Last administered on 04/18/19 06:17; Admin Dose 10 MG; Start 04/17/19 at 06:00; Stop 04/21/19 at 05:59 Lorazepam (Ativan) 0.5 mg Q8H PRN IV AGITATION; Start 04/17/19 at 01:30 Acyclovir 750 mg/ Sodium Chloride 100 ml @ 100 mls/hr Q8 IVPB Last administered on 04/18/19 05:41; Admin Dose 100 MLS/HR; Start 04/17/19 at 14:00 Morphine Sulfate (morphine) 2 mg Q4H PRN IV SEVERE PAIN LEVEL 7-10 Last administered on 04/18/19 05:27; Admin Dose 2 MG; Start 04/18/19 at 05:00 Al Hydrox/Mg Hydrox/Simethicone (Mag-Al Plus) 30 ml Q6H PRN PO GASTROINTESTINAL UPSET Last administered on 04/18/19 05:27; Admin Dose 30 ML; Start 04/18/19 at 05:00 Pantoprazole (Protonix Tab) 40 mg DAILY@06 PO Last administered on 04/18/19 05:27; Admin Dose 40 MG; Start 04/18/19 at 06:00 Hydromorphone HCl (Dilaudid) 1 mg Q4H PRN IV SEVERE PAIN LEVEL 7-10 Last administered on 04/18/19 06:18; Admin Dose 1 MG; Start 04/18/19 at 06:00 Vancomycin HCl 1.5 gm/Sodium Chloride 250 ml @ 83.333 mls/ hr Q8H IVPB ; Start 04/18/19 at 14:00 CORA AMBROCIO MD April 18, 2019 08:10
[2019-04-18] MEDS: L ACIDOPHIL/B LACTIS/B LONGUM CAPSULE PO SCH ×2 (08:49→20:50)
[2019-04-18 14:00] VITALS: BP 135/73; PULSE 70; RESP 20
[2019-04-18] MEDS: VANCOMYCIN HCL 1.5 GM in SOD CHLORIDE 0.9% 250 ML IVPB SCH ×2 (14:10→22:13)
--- NOTE | 2019-04-18 14:11 | PN ---
Date/Time of Note Date/Time of Note DATE: 04/18/19 TIME: 14:10 Assessment/Plan VTE Prophylaxis Risk score (from Ns)>0 risk: 1 SCD applied (from Ns): Yes Pharmacological prophylaxis: NA/contraindicated Pharm contraindication: low risk/ambulating Lines/Catheters IV Catheter Type (from [facility]): [place] Assessment/Plan Hospital Course SUBJECTIVE: Denies any headache or back pain. Had 2 episodes of vomiting and epigastric pain after he ate some food from home. OBJECTIVE: Physical Exam General: Adequately build 24 year-old male lying in bed in no apparent distress. HEENT: Normocephalic, atraumatic. Eyes: Anicteric sclerae, conjunctivae clear. ENT: Nasal septum midline, oral mucosa moist. Neck supple, no JVD noticed. Respiratory: Bilaterally clear breath sounds. No use of accessory muscles of respiration. No adventitious breath sounds. Cardiovascular: S1, S2 heard. Regular rate and rhythm. Abdomen: Soft, nontender, and nondistended. Bowel sounds positive in all 4 quadrants. Genitourinary: Deferred. Extremities: No cyanosis, no clubbing, no edema. Peripheral pulses palpable. Neurologic: Cranial nerves II through XII grossly intact. The patient is awake, alert, and oriented. Skin: Normal skin turgor. No skin rashes. Labs & Vitals per chart ASSESSMENT & PLAN 24-year-old male with no significant past medical history who came to the emergency room with chief complaint of headache, and fevers with evidence of underlying sepsis with leukocytosis, tachycardia, with spinal tap showing CSF WBC of more than 100, who was admitted to inpatient setting for further treatment and evaluation. 1. Meningitis. -Likely viral in origin. -Continue acyclovir. -Pending CSF culture. -Continue vancomycin plus ceftriaxone until cultures are available. -Continue Decadron. 2. Sepsis with leukocytosis and tachycardia, secondary to underlying meningitis present on admission. -Continue antimicrobials as per ID. 3. Fluids, electrolytes, and nutrition. -Regular diet. 4. DVT prophylaxis. -Bilateral SCDs. 5. Plan. -Continue antimicrobials as per ID. -Await clinical improvement. The patient was seen in collaboration with Dr. Rodriguez. Result Diagram: 04/18/19 0449 04/18/19 0449 Results 24hrs Laboratory Tests Test 04/18/19 04:49 04/18/19 12:02 White Blood Count 23.7 H Red Blood Count 5.32 Hemoglobin 15.8 Hematocrit 46.4 Mean Corpuscular Volume 87.2 Mean Corpuscular Hemoglobin 29.7 Mean Corpuscular Hemoglobin Concent 34.1 Red Cell Distribution Width 12.6 Platelet Count 334 Mean Platelet Volume 12.0 H Immature Granulocytes % 0.700 H Neutrophils % 91.8 H Lymphocytes % 3.4 L Monocytes % 4.0 Eosinophils % 0.0 Basophils % 0.1 Nucleated Red Blood Cells % 0.0 Immature Granulocytes # 0.160 H Neutrophils # 21.7 H Lymphocytes # 0.8 Monocytes # 1.0 H Eosinophils # 0.0 Basophils # 0.0 Nucleated Red Blood Cells # 0.0 Sodium Level 140 Potassium Level 3.9 Chloride Level 107 Carbon Dioxide Level 25 Anion Gap 8 # Blood Urea Nitrogen 18 Creatinine 0.73 Est Glomerular Filtrat Rate mL/min > 60 Glucose Level 144 # Hemoglobin A1c 5.3 Calcium Level 9.3 Phosphorus Level 2.8 Magnesium Level 2.1 Total Bilirubin 0.4 Direct Bilirubin 0.00 Indirect Bilirubin 0.4 Aspartate Amino Transf (AST/SGOT) 24 Alanine Aminotransferase (ALT/SGPT) 28 Alkaline Phosphatase 73 Troponin I < 0.012 < 0.012 Total Protein 6.8 # Albumin 4.2 Globulin 2.60 Albumin/Globulin Ratio 1.61 Thyroid Stimulating Hormone (TSH) 1.890 Vancomycin Level Trough 7.5 L Exam/Review of Systems Exam Vitals Vital Signs Date Temp Pulse Resp B/P (MAP) Pulse Ox O2 O2 Flow FiO2 Time Delivery Rate 04/18/19 98.6 55 18 113/72 97 Room Air 07:30 (86) Intake and Output 04/17/19 04/17/19 04/18/19 1515:00 23:00 07:00 IntakeIntake Total 150 ml 1950 ml 400 ml BalanceBalance 150 ml 1950 ml 400 ml Results Results 24hrs Laboratory Tests Test 04/18/19 04:49 04/18/19 12:02 White Blood Count 23.7 H Red Blood Count 5.32 Hemoglobin 15.8 Hematocrit 46.4 Mean Corpuscular Volume 87.2 Mean Corpuscular Hemoglobin 29.7 Mean Corpuscular Hemoglobin Concent 34.1 Red Cell Distribution Width 12.6 Platelet Count 334 Mean Platelet Volume 12.0 H Immature Granulocytes % 0.700 H Neutrophils % 91.8 H Lymphocytes % 3.4 L Monocytes % 4.0 Eosinophils % 0.0 Basophils % 0.1 Nucleated Red Blood Cells % 0.0 Immature Granulocytes # 0.160 H Neutrophils # 21.7 H Lymphocytes # 0.8 Monocytes # 1.0 H Eosinophils # 0.0 Basophils # 0.0 Nucleated Red Blood Cells # 0.0 Sodium Level 140 Potassium Level 3.9 Chloride Level 107 Carbon Dioxide Level 25 Anion Gap 8 # Blood Urea Nitrogen 18 Creatinine 0.73 Est Glomerular Filtrat Rate mL/min > 60 Glucose Level 144 # Hemoglobin A1c 5.3 Calcium Level 9.3 Phosphorus Level 2.8 Magnesium Level 2.1 Total Bilirubin 0.4 Direct Bilirubin 0.00 Indirect Bilirubin 0.4 Aspartate Amino Transf (AST/SGOT) 24 Alanine Aminotransferase (ALT/SGPT) 28 Alkaline Phosphatase 73 Troponin I < 0.012 < 0.012 Total Protein 6.8 # Albumin 4.2 Globulin 2.60 Albumin/Globulin Ratio 1.61 Thyroid Stimulating Hormone (TSH) 1.890 Vancomycin Level Trough 7.5 L Medications Medication Current Medications IV Flush (NS 3 ml) 3 ml PER PROTOCOL IV ; Start 04/17/19 at 01:30 Ondansetron HCl (Zofran Inj) 4 mg Q6H PRN IV NAUSEA/VOMITING Last administered on 04/18/19at 03:22; Admin Dose 4 MG; Start 04/17/19 at 01:30 Acetaminophen (Tylenol Tab) 650 mg Q6H PRN PO .PAIN 1-3 OR TEMP; Start 04/17/19 at 01:30 Acetaminophen/ Hydrocodone Bitart ([place] (5/325)) 1 tab Q6H PRN PO .PAIN 4-6 Last administered on 04/18/19at 03:23; Admin Dose 1 TAB; Start 04/17/19 at 01:30 Docusate Sodium (Colace) 100 mg Q12H PRN PO .CONSTIPATION; Start 04/17/19 at 01 :30 Bisacodyl (Dulcolax) 5 mg DAILY PRN PO .CONSTIPATION; Start 04/17/19 at 01:30 Vancomycin HCl (Vanco Iv Per Pharmacy) VANCOMYCIN PER PHARMACY PER PROTOCOL XX ; Start 04/17/19 at 01:30 Ceftriaxone Sodium 50 ml @ 100 mls/hr Q12H IVPB Last administered on 04/18/19at 12:32; Admin Dose 100 MLS/HR; Start 04/17/19 at 12:00 Dexamethasone (Decadron) 10 mg Q6H IV Last administered on 04/18/19at 12:32; Admin Dose 10 MG; Start 04/17/19 at 06:00; Stop 04/21/19 at 05:59 Lorazepam (Ativan) 0.5 mg Q8H PRN IV AGITATION; Start 04/17/19 at 01:30 Acyclovir 750 mg/ Sodium Chloride 100 ml @ 100 mls/hr Q8 IVPB Last administered on 04/18/19at 05:41; Admin Dose 100 MLS/HR; Start 04/17/19 at 14:00 Morphine Sulfate (morphine) 2 mg Q4H PRN IV SEVERE PAIN LEVEL 7-10 Last administered on 04/18/19at 05:27; Admin Dose 2 MG; Start 04/18/19 at 05:00 Al Hydrox/Mg Hydrox/Simethicone (Mag-Al Plus) 30 ml Q6H PRN PO GASTROINTESTINAL UPSET Last administered on 04/18/19at 05:27; Admin Dose 30 ML; Start 04/18/19 at 05:00 Pantoprazole (Protonix Tab) 40 mg DAILY@06 PO Last administered on 04/18/19at 05:27; Admin Dose 40 MG; Start 04/18/19 at 06:00 Hydromorphone HCl (Dilaudid) 1 mg Q4H PRN IV SEVERE PAIN LEVEL 7-10 Last administered on 04/18/19at 06:18; Admin Dose 1 MG; Start 04/18/19 at 06:00 Vancomycin HCl 1.5 gm/Sodium Chloride 250 ml @ 83.333 mls/ hr Q8H IVPB ; Start 04/18/19 at 14:00 Lactobacillus Acidophilus (Florajen3 Capsule) 1 each BID PO Last administered on 04/18/19at 08:49; Admin Dose 1 EACH; Start 04/18/19 at 09:00 Miscellaneous Information (*Rx Drug Level Order Reminder*) 1 1300 ONCE XX ; Start 04/19/19 at 13:00; Stop 04/19/19 at 13:01 MAXIMO VILLAREAL NP April 18, 2019 14:11
[2019-04-18 20:00] VITALS: BP 129/72; PULSE 74; RESP 19
[2019-04-19 02:00] VITALS: BP 124/56; RESP 19
[2019-04-19] MEDS: ACYCLOVIR IVPB SCH (06:17)
[2019-04-19] MEDS: PANTOPRAZOLE (EC) 40 MG TAB PO SCH (06:17)
[2019-04-19] MEDS: VANCOMYCIN HCL 1.5 GM in SOD CHLORIDE 0.9% 250 ML IVPB SCH (06:17)
[2019-04-19] MEDS: DEXAMETHASONE 10 MG/ML 1 ML INJ IV SCH (06:17)
[2019-04-19] MEDS: SOD CHLORIDE 0.9% IVPB SCH (06:17)
--- NOTE | 2019-04-19 07:33 | CONS ---
Assessment/Plan Assessment/Plan Hospital Course (Demo Recall) 1) meningitis, likely viral continue with vanco/ceftriaxone add acyclovir CSF in lab and will add HSV PCR, viral cx and VDRL will order RPR, and HSV serology in a.m. if cx remain neg after 72 hours can d/c antibacterials and change acyclovir to po until HSV PCR of CSF is reported back 04/18- can d/c steroids as decadron only indicated in bacterial meningitis and only been shown effective in pneumococcal meningitis specifically CSF cx are NGTD and if they remain neg by tomorrow i will d/c vanco/ceftriaxone 04/19 - CSF cx is NGTD and HSV pcr of CSF was neg d/c vanco/ceftriaxone/acyclovir/decadron ok to d/c home from ID perspective 2) Abd pain with V and diarrhea this could be side effects from the antibiotics abd x-ray shows increase in gas start probiotics, check stool for c.dif 04/19 - no further V and no stools since his first day here when given prune juice d/c stool for c.dif Consultation Date/Type/Reason Admit Date/Time April 17, 2019 at 01:08 Initial Consult Date 04/17/19 Type of Consult ID Date/Time of Note DATE: 04/19/19 TIME: 07:30 24 HR Interval Summary Free Text/Dictation no stools currently, only on first day when he got prune juice no ARNOLD pt has pain at site of LP but no leakage no N, V now Exam/Review of Systems Exam Vitals Vital Signs Date Temp Pulse Resp B/P (MAP) Pulse Ox O2 O2 Flow FiO2 Time Delivery Rate 04/19/19 98.2 19 124/56 98 02:00 (78) 04/18/19 74 20:00 04/18/19 Room Air 14:00 Intake and Output 04/18/19 04/18/19 04/19/19 1515:00 23:00 07:00 IntakeIntake Total 420 ml 1070 ml 300 ml BalanceBalance 420 ml 1070 ml 300 ml Constitutional: alert, oriented Neck: supple Results Result Diagram: 04/19/19 0452 04/19/19 0452 Results 24hrs Laboratory Tests Test 04/18/19 12:02 04/19/19 04:52 Troponin I < 0.012 White Blood Count 17.4 #H Red Blood Count 5.06 Hemoglobin 14.9 Hematocrit 43.6 Mean Corpuscular Volume 86.2 Mean Corpuscular Hemoglobin 29.4 Mean Corpuscular Hemoglobin Concent 34.2 Red Cell Distribution Width 12.7 Platelet Count 340 Mean Platelet Volume 11.7 H Immature Granulocytes % 0.600 H Neutrophils % 90.3 H Lymphocytes % 4.2 L Monocytes % 4.8 Eosinophils % 0.0 Basophils % 0.1 Nucleated Red Blood Cells % 0.0 Immature Granulocytes # 0.110 H Neutrophils # 15.7 H Lymphocytes # 0.7 L Monocytes # 0.8 Eosinophils # 0.0 Basophils # 0.0 Nucleated Red Blood Cells # 0.0 Sodium Level 140 Potassium Level 4.1 Chloride Level 105 Carbon Dioxide Level 25 Anion Gap 10 Blood Urea Nitrogen 23 H Creatinine 0.69 Est Glomerular Filtrat Rate mL/min > 60 Glucose Level 132 Calcium Level 8.9 Phosphorus Level 3.7 Magnesium Level 2.3 Medications Medication Current Medications IV Flush (NS 3 ml) 3 ml PER PROTOCOL IV ; Start 04/17/19 at 01:30 Ondansetron HCl (Zofran Inj) 4 mg Q6H PRN IV NAUSEA/VOMITING Last administered on 04/18/19at 03:22; Admin Dose 4 MG; Start 04/17/19 at 01:30 Acetaminophen (Tylenol Tab) 650 mg Q6H PRN PO .PAIN 1-3 OR TEMP; Start 04/17/19 at 01:30 Acetaminophen/ Hydrocodone Bitart ([place] (5/325)) 1 tab Q6H PRN PO .PAIN 4-6 Last administered on 04/18/19at 03:23; Admin Dose 1 TAB; Start 04/17/19 at 01:30 Docusate Sodium (Colace) 100 mg Q12H PRN PO .CONSTIPATION; Start 04/17/19 at 01:30 Bisacodyl (Dulcolax) 5 mg DAILY PRN PO .CONSTIPATION; Start 04/17/19 at 01:30 Vancomycin HCl (Vanco Iv Per Pharmacy) VANCOMYCIN PER PHARMACY PER PROTOCOL XX ; Start 04/17/19 at 01:30 Ceftriaxone Sodium 50 ml @ 100 mls/hr Q12H IVPB Last administered on 04/18/19at 23:49; Admin Dose 100 MLS/HR; Start 04/17/19 at 12:00 Dexamethasone (Decadron) 10 mg Q6H IV Last administered on 04/19/19 06:17; Admin Dose 10 MG; Start 04/17/19 at 06:00; Stop 04/21/19 at 05:59 Lorazepam (Ativan) 0.5 mg Q8H PRN IV AGITATION; Start 04/17/19 at 01:30 Acyclovir 750 mg/ Sodium Chloride 100 ml @ 100 mls/hr Q8 IVPB Last admin istered on 04/19/19 06:17; Admin Dose 100 MLS/HR; Start 04/17/19 at 14:00 Morphine Sulfate (morphine) 2 mg Q4H PRN IV SEVERE PAIN LEVEL 7-10 Last administered on 04/18/19 05:27; Admin Dose 2 MG; Start 04/18/19 at 05:00 Al Hydrox/Mg Hydrox/Simethicone (Mag-Al Plus) 30 ml Q6H PRN PO GASTROINTESTINAL UPSET Last administered on 04/18/19 05:27; Admin Dose 30 ML; Start 04/18/19 at 05:00 Pantoprazole (Protonix Tab) 40 mg DAILY@06 PO Last administered on 04/19/19 06:17; Admin Dose 40 MG; Start 04/18/19 at 06:00 Hydromorphone HCl (Dilaudid) 1 mg Q4H PRN IV SEVERE PAIN LEVEL 7-10 Last administered on 04/18/19 14:10; Admin Dose 1 MG; Start 04/18/19 at 06:00 Vancomycin HCl 1.5 gm/Sodium Chloride 250 ml @ 83.333 mls/ hr Q8H IVPB Last administered on 04/19/19at 06:17; Admin Dose 83.333 MLS/HR; Start 04/18/19 at 14:00 Lactobacillus Acidophilus (Florajen3 Capsule) 1 each BID PO Last administered on 04/18/19at 20:50; Admin Dose 1 EACH; Start 04/18/19 at 09:00 Miscellaneous Information (*Rx Drug Level Order Reminder*) 1 1300 ONCE XX ; Start 04/19/19 at 13:00; Stop 04/19/19 at 13:01 CORA AMBROCIO MD Apr 19, 2019 07:33
[2019-04-19 08:00] VITALS: BP 126/79; PULSE 60; RESP 20
[2019-04-19] MEDS: L ACIDOPHIL/B LACTIS/B LONGUM CAPSULE PO SCH (08:37)
[2019-04-19] MEDS ORDERED: Work Note (14:08)
--- NOTE | 2019-04-19 14:14 | PDOCDIS ---
Discharge Instructions CONDITION [id number] Patient Condition: [id number] Stable HOME CARE INSTRUCTIONS: [id number] Diet Instructions: [id number] Regular FOLLOW UP/APPOINTMENTS Follow-up Plan Logan Hardwick MD Specialty: Internal Medicine Office Address: [address] [place], [place] [id number] Office OTHER ORDERS: Other Orders: 1. Resume activities as tolerated. 2. Take a regular diet as tolerated. 3. Please go to the nearest emergency room if you have any significant headache, persistent fevers, persistent nausea/vomiting, or any other unusual signs/symptoms. 4. Please follow-up with your primary care physician 2 weeks. If you do not have a primary care physician, please call Dr. Logan Hardwick's office. MAXIMO VILLAREAL NP Apr 19, 2019 14:14
--- NOTE | 2019-04-19 17:37 | DS ---
Date/Time of Note Date/Time of Note DATE: 04/19/19 TIME: 17:37 Discharge Summary Admission/Discharge Info Admit Date/Time April 17, 2019 at 01:08 Discharge Date/Time Apr 19, 2019 at 16:00 Discharge Diagnosis 1. Aseptic meningitis. 2. S/P sepsis with leukocytosis and tachycardia, secondary to underlying meningitis present on admission. Patient Condition: Stable Consults 1. Ravin Martinez MD, Neurology. Procedures Brain CT IMPRESSION: 1. No evidence of acute intracranial pathology. 2. The brain is normal in appearance. Hx of Present Illness This is a 24-year-old male with no significant past medical history who came to the emergency room with chief complaint of headache, and fevers with evidence of underlying sepsis with leukocytosis, tachycardia, with spinal tap showing CSF WBC of more than 100, who was admitted to inpatient setting for further treatment and evaluation. Hospital Course The patient was admitted to inpatient setting. The patient was started on empiric antibiotics including antivirals. The patient was started on IV Decadron suspecting bacterial meningitis. CSF cultures were obtained on this patient. As the patient's cultures were negative for bacterial origin, the patient's antibiotics were discontinued and the patient's Decadron was discontinued as it is not indicated for any viral meningitis. The patient's CSF culture is also negative for any virus. The patient's serology including HSV 1 and 2, RPR, and HSV PCR was negative. Therefore, the patient's antivirals were also discontinued. The etiology of the patient's meningitis remains unclear. Nevertheless, the patient recovered well and the patient was clinically stable without any febrile illness, headache, or neck rigidity. The patient continued to have elevated WBC because of the use of IV steroids. The patient was cleared by infectious diseases to be discharged home off any antimicrobials. The patient is a relatively young male with no significant other comorbidities. The patient can return back to work with no restrictions. Discharge Instructions 1. Resume activities as tolerated. 2. Take a regular diet as tolerated. 3. Please go to the nearest emergency room if you have any significant headache, persistent fevers, persistent nausea/vomiting, or any other unusual signs/symptoms. 4. Please follow-up with your primary care physician in 2 weeks. If you do not have a primary care physician, please call Dr. Logan Hardwick's office. The patient verbalized understanding of his discharge instructions. At this time I would like to thank Dr. Martinez for seeing the patient and providing clinical recommendations. The patient was seen in collaboration with Dr. Rodriguez. Home Meds Active Scripts [Work Note] No Conflict Check This is to certify that this patient was admitted to [facility] from 04/16/2019 to 04/19/2019. He can return back to work on 04/21/2019 with no restrictions. Prov:MAXIMO VILLAREAL NURSE INTERN 04/19/19 Discontinued Reported Medications Ibuprofen* (Advil*) 200 Mg Capsule, 200 MG PO Q6H PRN for PAIN, CAP 04/17/19 Acetaminophen* (Acetaminophen*) 500 MG Extra Strength Tablet, 500 MG PO Q4H PRN for PAIN AND OR ELEVATED TEMP, TAB 04/17/19 Follow-up Plan Logan Hardwick MD Specialty: Internal Medicine Office Address: [address] [place] [address] Office Primary Care Provider Not On Staff Doctor Time spent on discharge: > 30 minutes Pending Labs Laboratory Tests Test 04/19/19 04:52 White Blood Count 17.4 10^3/ul (4.8-10.8) Red Blood Count 5.06 10^6/ul (4.70-6.10) Hemoglobin 14.9 g/dl (14.0-18.0) Hematocrit 43.6 % (42.0-52.0) Mean Corpuscular Volume 86.2 fl (82.0-101.0) Mean Corpuscular Hemoglobin 29.4 pg (29.0-33.0) Mean Corpuscular Hemoglobin Concent 34.2 g/dl (32.0-37.0) Red Cell Distribution Width 12.7 % (11.5-14.5) Platelet Count 340 10^3/UL (140-415) Mean Platelet Volume 11.7 fl (7.4-10.4) Immature Granulocytes % 0.600 % (0.001-0.429) Neutrophils % 90.3 % (39.0-77.0) Lymphocytes % 4.2 % (15.0-51.0) Monocytes % 4.8 % (0.0-11.0) Eosinophils % 0.0 % (0.0-7.0) Basophils % 0.1 % (0.0-2.0) Nucleated Red Blood Cells % 0.0 /100WBC (0.0-0.0) Immature Granulocytes # 0.110 10^3/ul (0.0-0.031) Neutrophils # 15.7 10^3/ul (1.6-7.5) Lymphocytes # 0.7 10^3/ul (0.8-2.9) Monocytes # 0.8 10^3/ul (0.3-0.9) Eosinophils # 0.0 10^3/ul (0.0-0.5) Basophils # 0.0 10^3/ul (0.0-0.1) Nucleated Red Blood Cells # 0.0 10^3/ul (0.0-0.0) Sodium Level 140 mmol/L (135-144) Potassium Level 4.1 mmol/L (3.5-5.1) Chloride Level 105 mmol/L (97-110) Carbon Dioxide Level 25 mmol/L (21-31) Anion Gap 10 (5-13) Blood Urea Nitrogen 23 mg/dl (7-20) Creatinine 0.69 mg/dl (0.61-1.24) Est Glomerular Filtrat Rate mL/min > 60 mL/min (>60) Glucose Level 132 mg/dl (70-220) Calcium Level 8.9 mg/dl (8.4-10.2) Phosphorus Level 3.7 mg/dl (2.5-4.9) Magnesium Level 2.3 mg/dl (1.7-2.5) MAXIMO VILLAREAL NP Apr 19, 2019 17:37
== END 2019-04-19 16:00 | disposition home or self-care (01) | DRG 97 ==
LOC: FTE 20:18 → 6WM 04-17 01:08 → EDBEDREQ 04-17 01:15 → 6WM 04-17 06:21 → PP2 04-17 22:22
PROVIDERS: ADMIT Family Medicine; ATTEND Family Medicine
PROC: 00JU3ZZ Inspection of Spinal Canal, Percutaneous Approach (ICD-10-PCS; principal; 2019-04-17)
DX: G03.0 Nonpyogenic meningitis (principal); A41.9 Sepsis, unspecified organism; D72.829 Elevated white blood cell count, unspecified; R00.0 Tachycardia, unspecified
CPT/HCPCS: 36415; 70450; 71045; 74018; 80048; 80053; 80202; 81001; 81003; 82945; 83036; 83605; 83690; 83735; 84100; 84157; 84443; 84484; 85025; 85610; 85730; 86592; 86692; 87045; 87070; 87086; 87252; 87400; 87529; 89051; 93005; 96361; 96374; 96375; 96376; J0133; J0696; J1100; J1170; J1200; J1885; J2270; J2405; J3370; J7030; J7050